=== PATIENT | female | born 1955 | race Caucasian/White ===

== ENCOUNTER 2020-01-16 10:54 | Day surgery (SDC) | payer MEDICARE, OTHER ==
[~2020-01-16 10:54] MED LIST: AMBIEN5 MG PO; Estrogel93 GM VAG; PROG100 PO; RIZATRIPTAN10 MG SL; THYR60 PO
--- NOTE | 2020-01-16 12:27 | NUR ---
Ambulatory in Day Surgery History, Chart, Medications and Allergies reviewed before start of procedure.Patient confirms NPO status and agrees with scheduled surgery. Lungs clear T/O to Auscultation.Patient states colon prep results clear.
--- NOTE | 2020-01-16 13:51 | NUR ---
01/16/20 1351 Maria Fernanda Brown History, Chart, Medications and Allergies reviewed before start of procedure.PATIENT CONFIRMS NPO STATUS AND AGREES WITH SCHEDULED PROCEDURE. MONITOR INTACT WITH CONTINUOUS PULSE OXIMETRY AND INTERMITTENT BP. O2 VIA N/C INTACT THROUGHOUT SEDATION/PROCEDURE. 3-LEAD EKG REVIEWED WITH PHYSICIAN PRIOR TO START OF PROCEDURE. PATIENT DETERMINED TO BE ASA APPROPRIATE FOR PROPOFOL SEDATION PRIOR TO START OF PROCEDURE BY DR. SINGER.
--- NOTE | 2020-01-16 14:51 | NUR ---
Patient up to Ambulate independently. Gait steady. Discharge instructions reviewed with patient. Patient verbalizes understanding. Copy given to patient to take home. Discharged via wheelchair to private car for ride home WITH BROTHER
== END 2020-01-16 22:50 | disposition home or self-care (01) ==
LOC: ORSCMMR 10:54 → ORD 12:30 → ORSCMMR 22:50
PROVIDERS: Internal Medicine Gastroenterology
PROC: 0DBK8ZX Excision of Ascending Colon, Via Natural or Artificial Opening Endoscopic, Diagnostic (ICD-10-PCS; principal; 2020-01-16 12:30)
DX: Z12.11 Encounter for screening for malignant neoplasm of colon (principal); Z86.010 Personal history of colon polyps; D12.2 Benign neoplasm of ascending colon; E03.9 Hypothyroidism, unspecified; Z79.899 Other long term (current) drug therapy
CPT/HCPCS: 88305; J2704; J7120

== ENCOUNTER → 2020-08-25 | Outpatient (CLI) | payer MEDICARE, OTHER | LOC: PLD 10:38 → LAB SHORT 10:38 | DX: D48.5 Neoplasm of uncertain behavior of skin (principal) | CPT/HCPCS: 88305 ==

== ENCOUNTER → 2022-10-05 | Outpatient (CLI) | payer MEDICARE, OTHER | END | disposition home or self-care (01) | LOC: LAB SHORT 08:09 | DX: L82.1 Other seborrheic keratosis (principal) | CPT/HCPCS: 88305 ==

== ENCOUNTER 2023-05-30 11:14 | Day surgery (SDC) | payer MEDICARE, OTHER ==
[~2023-05-30] VITALS: Ht 170.2 cm; Wt 57.3 kg
[2023-05-30 14:20] VITALS: BP 102/68
== END 2023-05-30 14:14 | disposition home or self-care (01) ==
LOC: ORSCSDS 11:14
PROVIDERS: Specialist
PROC: 0DJD8ZZ Inspection of Lower Intestinal Tract, Via Natural or Artificial Opening Endoscopic (ICD-10-PCS; principal; 2023-05-30 12:30)
DX: Z12.11 Encounter for screening for malignant neoplasm of colon (principal); Z86.010 Personal history of colon polyps; E07.9 Disorder of thyroid, unspecified; Z79.899 Other long term (current) drug therapy
CPT/HCPCS: J2704; J7120

== ENCOUNTER → 2023-10-23 | Outpatient (CLI) | payer MEDICARE, OTHER | END | disposition home or self-care (01) | LOC: LAB 10:45 → LAB SHORT 10:45 | DX: R10.9 Unspecified abdominal pain (principal) | CPT/HCPCS: 87338 ==

== ENCOUNTER → 2023-12-05 | Outpatient (CLI) | payer MEDICARE, OTHER | LOC: LAB SHORT 15:17 → LAB 15:17 | DX: L57.0 Actinic keratosis (principal) | CPT/HCPCS: 88305 ==

== ENCOUNTER → 2024-10-23 | Outpatient (CLI) | payer MEDICARE | LOC: LAB SHORT 16:18 → LAB 16:18 | DX: L08.0 Pyoderma (principal) | CPT/HCPCS: 87070; 87205 ==